=== PATIENT | female | born 1965 | race Caucasian/White ===

== ENCOUNTER 2023-03-13 08:53 | Emergency (ER) | payer MEDICARE, SELFPAY ==
[2023-03-13 09:00] VITALS: PULSE 89
[2023-03-13 09:08] VITALS: BP 150/86; PULSE 70; RESP 20; TEMP 36.4; BMI 30.5
--- NOTE | 2023-03-13 09:17 | XR_ITS ---
The [address] [address] Patient Name: LISSETT BAÑUELOS MRN: [id number] date: 1965 Sex: F Assigned Patient Location: ER Current Patient Location: ER Accession/Order Number: [id number] Exam Date: 03/13/2023 10:10 Report Date: 03/13/2023 10:35 At the request of: MAGI RENTERIA Procedure: XR elbow RT min 3V PROCEDURE: XR elbow RT min 3V HISTORY: fall with injury to right arm COMPARISON: None. FINDINGS: BONES:Posterior dislocation of the radius and ulna in relation to the humeral condyles. No visible fracture. SOFT TISSUES:No visible soft tissue swelling. EFFUSION:None visible. OTHER: Negative. IMPRESSION: 1. Complete posterior dislocation of the radius and ulna at the elbow joint. 2. No visible fracture or joint effusion. Electronically authenticated by: MATA FOSTER Date: 03/13/2023 10:35
--- NOTE | 2023-03-13 09:33 | ED_ITS ---
HPI - Extremity Injury (Upper) General Chief Complaint: Extremity Injury, Upper Stated Complaint: RIGHT ARM INJURY Time Seen by Provider: 03/13/23 09:32 Source: patient Mode of arrival: walk-in History of Present Illness HPI narrative: pt tripped over a dog and fell with her arm back and she hyper-extended her right elbow. She did not hit her head or having loss consciousness. She states unable to move her elbow. Has not taking anything at home for the pain. Denies any previous injury. Denies any paresthesias or weakness. Related Data Home Medications Medication Instructions Recorded Confirmed anastrozole 1 mg tablet 1 mg PO DAILY 03/13/23 03/13/23 atorvastatin 10 mg tablet 10 mg PO DAILY 03/13/23 03/13/23 fenofibrate micronized 134 mg 134 mg PO DAILY 03/13/23 03/13/23 capsule metoprolol succinate 25 mg 25 mg PO DAILY 03/13/23 03/13/23 tablet,extended release 24 hr ropinirole 0.5 mg tablet 0.5 mg PO DAILY 03/13/23 03/13/23 venlafaxine 75 mg capsule,extended 75 mg PO DAILY 03/13/23 03/13/23 release 24 hr Allergies Allergy/AdvReac Type Severity Reaction Status Date / Time acetaminophen [From Percocet] AdvReac Severe passing out Verified 03/13/23 09:08 oxycodone [From Percocet] AdvReac Severe passing out Verified 03/13/23 09:08 Review of Systems ROS Status of ROS 10 or more systems reviewed and unremarkable except as noted in history and below [facility] Social History Smoking status: Former smoker Exam Narrative Exam Narrative: Nurses notes and vital signs reviewed and patient is not hypoxic. General: Nontoxic, Well-appearing and in no apparent distress. Skin: Warm, dry, no pallor noted. No Rash Head: Normocephalic, atraumatic. Neck: Supple, non-tender. Eye: Pupils are equal, round and EOMI. No scleral icterus. Ears, Nose, Mouth, and Throat: TM clear, no posterior oropharynx erythema or nasal mucosal hypertrophy, uvula is mid-line Oral mucosa is moist Cardiovascular: Regular Rate and Rhythm without murmur, gallop or rub. Respiratory: No accessory muscle use or respiratory distress. Lungs are clear to auscultation, no wheezing, rales or rhonchi Chest Wall: no tenderness Back: No midline thoracic or lumbar vertebral tenderness. No CVA tenderness Musculoskeletal: deformity to the right elbow, mild edema and no ecchymosis. No tenderness to the wrist. Normal sensation to the thumb, middle finger and pinky. Radial pulse +2, capillary refill is brisk. Limited at the elbow due to pain. Small right knee abrasion. no calf or popliteal tenderness, no lower extremity edema/swelling GI: Abdomen is soft, non-distended. Normal bowel sounds. No masses appreciated. No tenderness to palpation. No rebound, guarding, or rigidity noted. Neurological: A&O x4. No cranial nerve dysfunction observed. No truncal ataxia. Moves all extremities. Sensation intact. Psychiatric: Cooperative and interactive. Normal mood and affect. Constitutional Vital Signs - 24 hr 03/13/23 09:08 03/13/23 09:00 03/13/23 11:20 Temperature 97.5 F L Pulse Rate [Monitor] 70 89 Respiratory Rate 20 Blood Pressure [Left Arm] 150/86 H Pulse Oximetry 97 Oxygen Delivery Method Oxygen Delivery Flow Rate 2 03/13/23 11:20 Temperature 98.1 F Pulse Rate [Monitor] 71 Respiratory Rate 20 Blood Pressure [Left Arm] 139/89 H Pulse Oximetry 97 Oxygen Delivery Method Nasal Cannula Oxygen Delivery Flow Rate 2 Course Vital Signs Vital signs: Vital Signs Pulse Rate 89 03/13/23 09:00 Temperature 98.1 F 03/13/23 11:20 Pulse Rate 71 03/13/23 11:20 Respiratory Rate 20 03/13/23 11:20 Blood Pressure 139/89 H 03/13/23 11:20 Pulse Oximetry 97 03/13/23 11:20 Oxygen Delivery Method Nasal Cannula 03/13/23 11:20 Oxygen Delivery Flow Rate 2 03/13/23 11:20 MDM - Extremity Injury (Upper) MDM Narrative Medical decision making narrative: Procedural sedation: The patient was identified prior to the procedure. Risks and benefits of procedure and anesthesia were reviewed and consent was obtained. Time out was called prior to the procedure. We ensured IV access was established. Intubation crash cart and airway equipment in the room. Respiratory is also at the bedside. The patient was placed on panel monitor with oxygen at 2LPM NC and continuous pulse oximetry and capnography. Patient was given Fentanyl 100 ?g for analgesia and Propofol 80 mg bolus for sedation. Procedure performed successfully and patient tolerated well. I was present for the analgesia, anesthesia and the procedure. Total procedure time: 25 min. Orthopedic reduction of right elbow Patient was placed in prone position. gentle Traction to the forearm was applied.Reduction was obtained. It was done to confirm. Radial pulse +2, capillary refill is brisk. Normal sensation distally. She was discussed with Dr. Mack. She was placed on a sugar tong splint with thumb base and the floor. She was placed in a sling. pt will RICE, take Tylenol and Motrin. At this time the patient is without objective evidence of an acute process requiring hospitalization or inpatient management. The patient has remained hemodynamically stable. No additional indication for emergent studies at this time. I answered all questions. Discussed discharge instructions including standard anticipatory guidance and what should prompt a return to the emergency department, including if they get worse are not getting better or develops any new or concerning symptoms. I've given them specific time frame in which to follow-up, and who to follow-up with. The patient demonstrates understanding. Patient is nontoxic and stable for discharge with outpatient follow-up. This note was created with the assistance of a speech recognition program. Although the intention is to generate documents that actually reflects the content of the visit, no guarantees can be provided that every mistake has been identified and corrected by editing. Discharge Plan Discharge Chief Complaint: Extremity Injury, Upper Clinical Impression: Dislocation closed, elbow Time of Disposition Decision: 12:39 Condition: Good Mode of Transportation: Private Vehicle Prescriptions / Home Meds: No Action atorvastatin 10 mg tablet 10 mg PO DAILY fenofibrate micronized 134 mg capsule 134 mg PO DAILY metoprolol succinate 25 mg tablet extended release 24 hr 25 mg PO DAILY ropinirole 0.5 mg tablet 0.5 mg PO DAILY venlafaxine 75 mg capsule,extended release 24hr 75 mg PO DAILY anastrozole 1 mg tablet 1 mg PO DAILY Instructions: Elbow Dislocation (ED) Stand Alone Forms: Portal Instructions Referrals: MEERA JEAN [Primary Care Provider] - 1 week SARAH FRIAS [Physician] - 1 week
--- NOTE | 2023-03-13 10:48 | XR_ITS ---
The [address] [address] Patient Name: LISSETT BAÑUELOS MRN: [id number] date: 1965 Sex: F Assigned Patient Location: ER Current Patient Location: ER Accession/Order Number: [id number] Exam Date: 03/13/2023 11:40 Report Date: 03/13/2023 12:07 At the request of: MAGI RENTERIA Procedure: XR elbow RT 2V PROCEDURE: XR elbow RT 2V HISTORY: post reduction COMPARISON: None. FINDINGS: BONES:Appropriate position of the radius and ulna relation to the humeral condyles. No visible fracture or articular surface irregularity. SOFT TISSUES:No visible soft tissue swelling. EFFUSION:Small joint effusion. OTHER: Negative. IMPRESSION: 1. Successful reduction of right elbow. No appreciable fracture. 2. Small joint effusion. Electronically authenticated by: MATA FOSTER Date: 03/13/2023 12:07
[2023-03-13] MEDS: FENTANYL CITRATE/PF 100 MCG/2 ML VIAL IV (11:17)
[2023-03-13] MEDS: 0.9 % SODIUM CHLORIDE 1,000 ML 999 ML IV (11:19)
[2023-03-13 11:20] VITALS: BP 139/89; PULSE 71; RESP 20; TEMP 36.7; O2SAT 97
[2023-03-13] MEDS: PROPOFOL 10 MG/1 ML VIAL 2.654 MG IV (11:27)
[2023-03-13 11:33] VITALS: BP 126/84; PULSE 65; RESP 20; O2SAT 98
[2023-03-13 11:43] VITALS: BP 133/94; PULSE 65; RESP 20; O2SAT 98
[2023-03-13 13:13] VITALS: BP 128/85; PULSE 69; RESP 20; O2SAT 98
== END 2023-03-13 13:07 | disposition home or self-care (01) ==
PROVIDERS: Emergency Provider Emergency Medicine; PCP Family Medicine
DX: S53.124A Posterior dislocation of right ulnohumeral joint, initial encounter (principal); Z87.891 Personal history of nicotine dependence; S80.211A Abrasion, right knee, initial encounter; W01.0XXA Fall on same level from slipping, tripping and stumbling without subsequent striking against object, initial encounter
CPT/HCPCS: 24600; 73070; 73080; 96374; 96375; 99285

== ENCOUNTER 2025-03-16 10:08 | Outpatient (OUT) | payer MEDICARE, SELFPAY ==
--- OUTSIDE RECORDS SUMMARY | 2025-03-16 10:13 | XMS_ITS | Encounter Summary ---
Author Organization [facility] Address [address] [place] [address] Care Team Providers Care Lath Hand Name Role Phone Jose Cervantes MD Unavailable + [phone] Nette Serrano MD Primary Care Provider [phone] Houston Carolina MD Unavailable [phone] Ramona Nunez PA-C Unavailable [phone] Shahrzad Person MD Unavailable [phone] Source Comments In the event this information is protected by the Federal Confidentiality of Alcohol and Drug AbusePatient Records regulations: The Federal rules restrict any use of the information to criminally investigate or prosecute any alcohol or drug abuse patient.[facility] Encounter Details Date Type Department Care Team (Late st Contact Info) Description 02/07/2025 Patient Msg Gynecology Oncology [address] [place], [place] [id number] Caty Adams APRN.PATTERN CHANGER [address] [place] [address] update Social History Tobacco Use Types Packs/Day Years Used Date Smoking Tobacco: Former Cigarettes 1 25 1 - 07/15/2021 Passive Smoke Exposure: Past Smokeless Tobacco: Never Alcohol Use Standard Drinks/Week Comments Not Currently 0 (1 standard drink = 0.6 oz pur e alcohol) PHQ-2 Answer Date Recorded PHQ-2 score 4 05/10/2024 Area Deprivation Index Answer Date Jad rded National Score (1-100), lower number is lower ri sk 65 03/26/2023 State Score (1-10), lower number is lower risk 4 03/26/2023 Data from: https://www.neighborhoodatlas.medicine.[facility]/. Last address used for calculation [address] 03/26/2023 Comments No Sex and Gender Information Value Date Recorded Sex Assigned at Not on file Legal Sex Female 2:52 PM EDT Gender Identity Not on file Sexual Orientation Not on file documented as of this encounter Plan of Treatment Upcoming Encounters Date Type Department Care Team (Latest Contact Info) Description 03/16/2025 1:45 PM EDT Appointment Radiology Pet CT [address] [place] [address] CT CAP W IV CONTRAST 03/16/2025 3:30 PM EDT Visit (SP) Office Gynecology Oncology [address] [place] [address] [place] [address] Caty Adams APRN.PATTERN CHANGER [address] [place], [place] [id number] Follo up per encounter documented as of this encounter Visit Diagnoses Not on filedocumented in this encounter Care Teams Lath Hand Relationship Specialty Start Date End Date Nette Serrano MD [address] [facility] [place] [address] PCP - General Family Medicine 07/27/21 Jose Cervantes MD [address] [place] [address] Referring Thoracic Surgery 07/20/21 Houston Carolina MD [address] [place] [address] [place] [address] Physician Hematology/Oncology 08/27/21 Ramona Nunez PA-C [address] [place] [address] [place] [address] Physician Aerial Planting And Cultivation Manager Hematology/Oncology 08/27/21 Shahrzad Person MD [address] [place] [address] Referring Gynecology 07/27/23 documented as of this encounter
--- OUTSIDE RECORDS SUMMARY | 2025-03-16 10:13 | XMS_ITS | Encounter Summary ---
Author Organization [facility] Address [address] [place] [address] Care Team Providers Care Rn X Ray Name Role Phone Jose Cervantes MD Unavailable + [phone] Nette Serrano MD Primary Care Provider [phone] Cindy Timmons RN Unavailable [phone] Houston Carolina MD Unavailable [phone] Ramona Nunez PA-C Unavailable [phone] Shahrzad Person MD Unavailable [phone] Source Comments In the event this information is protected by the Federal Confidentiality of Alcohol and Drug AbusePatient Records regulations: The Federal rules restrict any use of the information to criminally investigate or prosecute any alcohol or drug abuse patient.[facility] Encounter Details Date Type Department Care Team (Late st Contact Info) Description 10/15/2023 Patient Msg Gynecology [address] [place] [address] Stephanie Castañeda APRN.[employer] GLAZER [address] [place] [address] Labs Social History Tobacco Use Types Packs/Day Years Used Date Smoking Tobacco: Former Cigarettes 10 30 1 - 07/15/2021 Passive Smoke Exposure: Past Smokeless Tobacco: Never Alcohol Use Standard Drinks/Week Comments Not Currently 0 (1 standard drink = 0.6 oz pur e alcohol) PHQ-2 Answer Date Recorded PHQ-2 score 2 08/30/2022 Area Deprivation Index Answer Date Jad rded National Score (1-100), lower number is lower ri sk 65 03/26/2023 State Score (1-10), lower number is lower risk 4 03/26/2023 Data from: https://www.neighborhoodatlas.medicine.[facility].edu/. Last address used for calculation [address] 03/26/2023 Comments No Sex and Gender Information Value Date Recorded Sex Assigned at Not on file Legal Sex Female 2:52 PM EDT Gender Identity Not on file Sexual Orientation Not on file documented as of this encounter Plan of Treatment Upcoming Encounters Date Type Department Care Team (Latest Contact Info) Description 03/16/2025 1:45 PM EDT Appointment Radiology Pet CT [address] [facility] [place] [address] CT CAP W IV CONTRAST 03/16/2025 3:30 PM EDT Visit (SP) Office Gynecology Oncology [address] [place] [address] [place] [address] Caty Adams APRN.[employer] GLAZER [address] [place], [place] [id number] Follo up per encounter documented as of this encounter Visit Diagnoses Not on filedocumented in this encounter Care Teams Rn X Ray Relationship Specialty Start Date End Date Nette Serrano MD [address] [place] [address] PCP - General Family Medicine 07/27/21 Jose Cervantes MD [address] [place] [address] Referring Thoracic Surgery 07/20/21 Cindy Timmons RN [address] [facility] [address] Specialty Machine Assembler For Puller Over Hematology/Oncology 08/27/21 01/26/24 Houston Carolina MD [address] [place] [address] Physician Hematology/Oncology 08/27/21 Ramona Nunez PA-C [address] [facility] [place] [address] Physician Information Security Systems Instructor Hematology/Oncology 08/27/21 Shahrzad Person MD [address] [place] [address] Referring Gynecology 07/27/23 documented as of this encounter
--- OUTSIDE RECORDS SUMMARY | 2025-03-16 10:13 | XMS_ITS | Encounter Summary ---
Author Organization [facility] Address [address] [place] [address] Care Team Providers Care Cdl Driver Name Role Phone Jose Cervantes MD Unavailable + [phone] Nette Serrano MD Primary Care Provider [phone] Houston Carolina MD Unavailable [phone] Ramona Nunez PA-C Unavailable [phone] Shahrzad Person MD Unavailable [phone] Source Comments In the event this information is protected by the Federal Confidentiality of Alcohol and Drug AbusePatient Records regulations: The Federal rules restrict any use of the information to criminally investigate or prosecute any alcohol or drug abuse patient.[facility] Reason for Visit * Reason Comments Refill Request Encounter Details Date Type Department Care Team (Late st Contact Info) Description 06/03/2024 Refill Radiation Oncology [address] [place] [address] [place] [address] Caty Adams APRN.COLLEGE INTERN [address] [place] [address] Refill Request Social History Tobacco Use Types Packs/Day Years [...] is lower risk 4 03/26/2023 Data from: https://www.neighborhoodatlas.medicine.[facility]/. Last address used for calculation [address] [...] PM EDT Appointment Radiology Pet CT [address] [facility] [address] CT CAP W IV CONTRAST 03/16/2025 3:30 PM EDT Visit (SP) Office Gynecology Oncology [address] [facility] [address] Caty Adams APRN.COLLEGE INTERN [address] [place], [place] [phone] Follo up per encounter documented as of this encounter Visit Diagnoses Not on filedocumented in this encounter Care Teams Cdl Driver Relationship Specialty Start Date End Date Nette Serrano MD [address] [place] [address] PCP - General Family Medicine 07/27/21 Jose Cervantes MD [address] [place] [address] Referring Thoracic Surgery 07/20/21 Houston Carolina MD [address] [place] [address] Physician Hematology/Oncology 08/27/21 Ramona Nunez PA-C [address] [place] [address] Physician Refrigerating Technician Hematology/Oncology 08/27/21 Shahrzad Person MD [address] [place] [address] Referring Gynecology 07/27/23 documented as of this encounter
--- OUTSIDE RECORDS SUMMARY | 2025-03-16 10:13 | XMS_ITS | Encounter Summary ---
Author Organization [employer] Address [id number] [address] [place] [address] Care Team Providers Care Lecturer Of Portuguese Name Role Phone Nette Serrano MD Primary Care Provider [phone] Encounter Details Date Type Department Care Team (Late st Contact Info) Description 07/19/2021 [facility] [address] [address] Brooke Aviles LPN Social History Tobacco Use Types Packs/Day Years Used Date Smoking Tobacco: Some Days Cigarettes Smokeless Tobacco: Never Alcohol Use Standard Drinks/Week Comments Not Currently 0 (1 standard drink = 0.6 oz pur e alcohol) Childcare Answer Date Recorded Childcare Unknown 03/17/2019 Employment Answer Date Recorded Employment Unknown 03/17/2019 Purpose - Life Answer Date Recorded Purpose and direction in life Unknown Comments No Sex and Gender Information Value Date Recorded Sex Assigned at Not on file Legal Sex Female 12:06 PM EDT Gender Identity Not on file Sexual Orientation Not on file COVID-19 Exposure Response Date Recorded In the last month, have you been in contact with someone who was confirmed or suspected to have Coronavirus / COVID-19? No / Unsure 07/19/2021 8:35 AM EDT documented as of this encounter Miscellaneous Notes * Telephone Encounter - Brooke Aviles LPN - 07/19/2021 10:19 AM EDT AUTO ADJUDICATION SPECIALIST Suzanne Hdez from Cardio/surgery - pt states she wants to go [facility] and very demanding to go there (was given her path results today)- there is an office in [place] close to her house, and she has been there before. AUTO ADJUDICATION SPECIALIST is wondering what we would like to do, and if we have a doctorwe recommend there, and if that's okay to send her there? [phone] - turbinated bone grinder [facility] Office [phone] * Telephone Encounter - Pawan Osborne MD - 07/19/2021 10:19 AM EDT . Houston Carolina MD is [facility] office Can see him or one of his partners Does she want to see us in RV? rjw * Telephone Encounter - Brooke Aviles LPN - 07/19/2021 10:19 AM EDT Cardio/surgery will place referral, will call if they have any issues. Pt still wants to keep her f/u with you on 07/26 at noon. documented in this encounter Plan of Treatment Not on file documented as of this encounter Goals Goal Patient Goal Type Associated Problems Recent Progress Patient-Stated? Author home General Yes Maria Isabel Valadez RN Note: Evaluation of progress towards goal: Patient plans to discharge home with self care and with assistance from family. documented as of this encounter Visit Diagnoses Not on filedocumented in this encounter Care Teams Lecturer Of Portuguese Relationship Specialty Start Date End Date Nette Serrano MD [address] [place] [address] PCP - General Family Medicine 06/19/21 documented as of this encounter
--- OUTSIDE RECORDS SUMMARY | 2025-03-16 10:13 | XMS_ITS | Encounter Summary ---
Author Organization [facility] Address [address] [place] [address] Care Team Providers Care Head Sawyer Name Role Phone Jose Cervantes MD Unavailable + [phone] Nette Serrano MD Primary Care Provider [phone] Cindy Timmons RN Unavailable [phone] Houston Carolina MD Unavailable [phone] Ramona Nunez PA-C Unavailable [phone] Shahrzad Person MD Unavailable [phone] Source Comments In the event this information is protected by the Federal Confidentiality of Alcohol and Drug AbusePatient Records regulations: The Federal rules restrict any use of the information to criminally investigate or prosecute any alcohol or drug abuse patient.[facility] Encounter Details Date Type Department Care Team (Latest Contact Info) Description 07/04/2022 H&P External-NonCCF Provider, LORENA Curtis Do not enter address information under generic External Provider. Social History Tobacco Use Types Packs/Day Years Used Date Smoking Tobacco: Former Cigarettes 1 25 1 - 07/15/2021 Smokeless Tobacco: Never Alcohol Use Standard Drinks/Week Comments Not Currently 0 (1 standard drink = 0.6 oz pur e alcohol) PHQ-2 Answer Date Recorded PHQ-2 score 0 05/31/2022 Area Deprivation Index Answer Date Jad rded National Score (1-100), lower number is lower ri sk 62 03/01/2022 State Score (1-10), lower number is lower risk N ot on file 03/01/2022 Data from: https://www.neighborhoodatlas.medicine.[facility].edu/. Last address used for calculation [address] [place] 03/01/2022 Comments No Sex and Gender Information Value Date Recorded Sex Assigned at Not on file Legal Sex Female 2:52 PM EDT Gender Identity Not on file Sexual Orientation Not on file documented as of this encounter Plan of Treatment Upcoming Encounters Date Type Department Care Team (Latest Contact Info) Description 03/16/2025 1:45 PM EDT Appointment Radiology Pet CT [address] [facility] [place] [address] CT CAP W IV CONTRAST 03/16/2025 3:30 PM EDT Visit (SP) Office Gynecology Oncology [address] [place] [address] [place] [address] Caty Adams APRN.CASHIER AND SALESPERSON [address] [place], [place] [id number] Follo up per encounter documented as of this encounter Visit Diagnoses Not on filedocumented in this encounter Care Teams Head Sawyer Relationship Specialty Start Date End Date Nette Serrano MD [address] [place] [address] PCP - General Family Medicine 07/27/21 Jose Cervantes MD [address] [facility] [place] [address] Referring Thoracic Surgery 07/20/21 Cindy Timmons, RN [address] [facility] [place] [address] Specialty Gis Geographer Hematology/Oncology 08/27/21 01/26/24 Houston Carolina MD [address] [place] [address] Physician Hematology/Oncology 08/27/21 Ramona Nunez PAMeñoC [address] [place] [address] Physician Conservation Agent Hematology/Oncology 08/27/21 Shahrzad Person MD [address] [place] [address] Referring Gynecology 07/27/23 documented as of this encounter
--- OUTSIDE RECORDS SUMMARY | 2025-03-16 10:13 | XMS_ITS | Clinical Summary ---
Author Organization [facility] Address [address] [place] [address] Care Team Providers Care Banana Handler Name Role Phone Jose Cervantes MD Unavailable + [phone] Nette Serrano MD Primary Care Provider [phone] Houston Carolina MD Unavailable [phone] Ramona Nunez PA-C Unavailable [phone] Shahrzad Person MD Unavailable [phone] Allergies Active Allergy Reactions Criticality Noted Date Comments Alcohol Hives 09/07/2021 Oxycodone-Acetaminophen Other: See Comments High PASSED OUT Medications atorvastatin (LIPITOR) 10 mg tablet Take 10 mg by mouth once daily. Active fenofibrate (LOFIBRA) 134 mg capsule Take 134 mg by mouth once daily. Active metoprolol succinate ER (TOPROL XL) 25 mg 24 hr tablet Take 12.5 mg by mouth once daily. Active rOPINIRole (REQUIP) 0.5 mg tablet Take 0.5 mg by mouth once daily. Active venlafaxine ER (EFFEXOR XR) 75 mg 24 hr capsule Take 75 mg by mouth once daily. 05/12/2019 Active multivit-min/ludy jassi fumarate (MULTI VITAMIN ORAL) Take 1 tablet by mouth once daily. Active calcium-carbonat e-vitamin D3 500 mg(1,250mg) -200 unit per tablet Take 1 tablet by mouth once daily. Active prochlorperazine (COMPAZINE) 10 mg tablet Take 1 tablet by mouth every 6 hours as needed. 100 tablet 2 09/07/2021 1:25 PM EST 08/27/2021 Active acetaminophen (TYLENOL) 500 mg tablet Take 500 mg by mouth every 8 hours as needed. Active ibuprofen (MOTRIN) 200 mg tablet Take 400 mg by mouth every 6 hours as needed. Active tamoxifen (NOLVADEX) 20 mg tablet Take 1 tablet (20 mg) by mouth every afternoon. 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 Encounters Date Type Department Care Team Description 02/07/2025 Patient Msg Gynecology Oncology [address] [place] [address] Caty Adams APRN.TOMBSTONE SETTER update 02/07/2025 Telephone Cancer Appts [address] [place] [address] Shahrzad Person MD 02/07/2025 Refill Gynecology [address] [place] [address] Basilia Willard RN Refill Request 12/22/2024 7:37 AM EDT - 12/22/2024 11:59 PM EDT Hospital Encounter Radiology Pet CT [address] [place] [address] Granulosa cell tumor [D39.10] Discharge Disposition: Home 12/22/2024 Results Follow-Up Gynecology Oncology [address] [place] [address] Caty Adams APRN.TOMBSTONE SETTER 12/21/2024 Telephone Hematology/Oncology [address] [place] [address] [place] [address] Bren Woodall RN Orders 12/18/2024 Travel from Last 3 Months Immunizations Immunization Administration Dates Next Due diphtheria tetanus pertussis (DTP) vaccine 05/06 Family History Medical History Relation Comments bladder cancer Brother 1 Prostate Cancer Brother 2 Lung Cancer Mother Breast Cancer Paternal Aunt 1 Breast Cancer Paternal Aunt 2 Breast Cancer Paternal Aunt 3 Pancreatic Cancer Paternal Grandmother Uterine Cancer Sister 1 Uterine Cancer Sister 2 Relation Status Comments Brother 1 Alive Brother 2 Alive Mother Paternal Aunt 1 Alive Paternal Aunt 2 Alive Paternal Aunt 3 Paternal Grandmother Sister 1 Alive Sister 2 Alive Social History Tobacco Use Types Packs/Day Years Used Date Smoking Tobacco: Former Cigarettes 1 25 1 - 07/15/2021 Passive Smoke Exposure: Past Smokeless Tobacco: Never Tobacco Cessation:Counseling Given: Not Answered Alcohol Use Standard Drinks/Week Comments Not Currently 0 (1 standard drink = 0.6 oz pur e alcohol) PHQ-2 Answer Date Recorded PHQ-2 score 4 05/10/2024 Area Deprivation Index Answer Date Jad rded National Score (1-100), lower number is lower ri sk 65 03/26/2023 State Score (1-10), lower number is lower risk 4 03/26/2023 Data from: https://www.neighborhoodatlas.medicine.[facility].edu/. Last address used for calculation [address] 03/26/2023 Comments No Sex and Gender Information Value Date Recorded Sex Assigned at Not on file Legal Sex Female 2:52 PM EDT Gender Identity Not on file Sexual Orientation Not on file Last Filed Vital Signs Vital Sign Reading Time Taken Comments Blood Pressure 150/87 09/01/2024 8:36 AM EST Pulse 94 09/01/2024 8:36 AM EST Temperature 36.5 C (97.7 F) 09/01/2024 8:36 AM EST Respiratory Rate 16 09/01/2024 8:36 AM EST Oxygen Saturation 95% 09/01/2024 8:36 AM EST Inhaled Oxygen Concentration - - Weight 96.5 kg (212 lb 11.9 oz) 09/01/2024 8:36 AM EST Height 167 cm (5' 5.75 ) 08/19/2023 2:52 PM EST Body Mass Index 34.6 08/19/2023 2:52 PM EST Plan of Treatment Upcoming Encounters Date Type Department Care Team (Latest Contact Info) Description 03/16/2025 1:45 PM EDT Appointment Radiology Pet CT [address] [place] [address] CT CAP W IV CONTRAST 03/16/2025 3:30 PM EDT Visit (SP) Office Gynecology Oncology [address] [place] [address] Caty Adams APRN.TOMBSTONE SETTER [address] [place] [address] Follo up per encounter Health Maintenance Due Date Last Done Comments Anxiety Screening 1985 Depression Screening 1985 HIV Screening 1985 Hepatitis C Screening 1985 Hepatitis B Vaccine (1 of 3 - 19+ 3-dose series) 1986 Cervical Cancer Screening [address] Colonography 2012 Cologuard (FIT-DNA) 2012 Colonoscopy 2012 Lipid Screening 2012 Sigmoidoscopy 2012 Pneumococcal Vaccine: 50+ (1 of 1 - PCV) 2017 Shingrix Vaccine (1 of 2) 2017 Colorectal Cancer Screening 06/23/2022 Fecal Occult Blood 06/23/2022 06/23/2021 Covid-19 Vaccine (1 - 2023-2 5 season) 2024 Medicare Advantage Annual We llness Visit 10/06/2024 Influenza Vaccine (Season Ended) 2025 Diabetes Screening 09/01/2027 09/01/2024, 0 03/19/2023, 08/15/2022, Additional history exists DTaP,Tdap,Td Vaccine (2 - Tdap) 05/06/2031 Procedures Procedure Name Priority Date/Time Associated Diagnosis Comments CT CHEST W IVCON Routine 12/22/2024 9:15 AM EDT Granulosa cell tumor Abnormal CT of spine Abnormal CT scan, pelvis CT ABD/PEL W IVCON Routine 12/22/2024 9: 15 AM EDT Granulosa cell tumor Abnormal CT of spine Abnormal CT scan, pelvis CREATININE BLD Routine 12/22/2024 7:38 AM EDT Malignant neoplasm of ovary, unspecified laterality (HCC) COMPREHENSIVE METABOLIC PANEL Routine 09/01/2024 9:28 AM EST Granulosa cell tumor from Last 3 Months or Most Recently Relevant to Health Maintenance Results * CT ABD/PEL W IVCON (12/22/2024 9:15 AM EDT) Anatomical Region Laterality Modality Abdomen Nuclear Medicine , Nuclear Medicine 12/22/2024 9:15 AM EDT Impressions 12/22/2024 10:30 AM EDT IMPRESSION: 1. Since 08/23/2024, similar appearance of left adnexal/perisigmoid mass. 2. Unchanged sclerotic osseous metastases involving the bony pelvis with healing pathologic fractures of the left inferior and superior pubic rami. 3. No progressive metastatic disease within the abdomen/pelvis. 4. Please refer to concurrently acquired and separately reported chest CT for findings related to the thorax. Transcribe Date/Time: Dec 22 2024 9:37A Dictated by: WILFRID BRADEN MD This examination was interpreted and the report reviewed and electronically signed by: WILFRID BRADEN MD on Dec 22 2024 10:27AM EST Thank you for allowing us to participate in the care of your patient. Should there be any questions regarding this interpretation, please call [phone]. If you are unable to reach us at the number above, please feel free to contact [facility] at [phone]. Narrative 12/22/2024 10:30 AM EDT * * *Final Report* * * DATE OF EXAM: Dec 22 2024 9:15AM [facility] 0530 - CT ABD/PEL W IVCON / PROCEDURE REASON: multiple diagnoses * * * * Physician Interpretation * * * * RESULT: EXAMINATION: CT ABDOMEN AND PELVIS WITH IV CONTRAST CLINICAL HISTORY: Granulosa cell tumor. Examination for follow-up. TECHNIQUE: CT of the abdomen and pelvis was performed using standard technique, scanning from just above the dome of the diaphragm to the symphysis pubis. MQ: CTAP_3 Contrast: IV: 100 ml of Omnipaque 350 Oral: 500 ml of Omni 240 10-25ml diluted with water CT Radiation dose: Integrated Dose-length product (DLP) for this visit = 1544 mGy*cm. CT Dose Reduction Employed: mAs-kVp adjusted based on patient size-age COMPARISON: CT abdomen/pelvis 08/23/2024, 04/19/2024, 01/12/2024 and 10/15/2023 RESULT: Liver: Normal liver morphology. No suspicious hepatic mass. Biliary: No bile duct dilation. Gallbladder is unremarkable. Spleen: No mass. No splenomegaly. Pancreas: No mass or duct dilation. Adrenals: No mass. Kidneys: The kidneys enhance symmetrically. Subcentimeter hypodensities within the renal cortices are too small to categorize, but likely cysts. There are nonobstructive left renal stones, measuring up to 0.8 cm. No ureteral stone or hydronephrosis. GI tract: There is a moderate-sized hiatal hernia. The bowel is normal in caliber and without evidence of wall thickening or obstruction. There are sigmoid colonic diverticula, without associated inflammation. Please also see pelvis section. Normal appendix. Lymph nodes: No abdominal or pelvic lymphadenopathy. Mesentery/Peritoneum: No ascites or mass. Retroperitoneum: No mass. Vasculature: - Abdominal aorta and iliac arteries: Atherosclerotic calcifications without aneurysm. - Celiac and SMA: Patent without stenosis. - Portal venous system (SMV, splenic vein, portal vein and branches): Patent. - Hepatic veins: Patent. Pelvis: The rectum and urinary bladder are unremarkable. A heterogeneously enhancing left adnexal mass with broad-based contact with the sigmoid colon measures 4.2 x 5.6 cm on series 3, image 110 (previously 4.2 x 5.4 cm). No new pelvic mass or fluid collection. Bones/Soft Tissues: Ill-defined lytic/sclerotic osseous metastases involving the left inferior and superior pubic rami with healing associated pathologic fractures are similar in appearance. Additional sclerotic osseous lesions involving both iliac wings (series 3, image 104 and 96) are also unchanged. No new destructive osseous abnormality. Lower thorax: A chest CT performed will be reported separately. Localizer images: No additional findings. Procedure Note Provider, [facility] [place] - 12/22/2024 * * *Final Report* * * DATE OF EXAM: Dec 22 2024 9:15AM [facility] 0530 - CT ABD/PEL W IVCON / PROCEDURE REASON: multiple diagnoses * * * * Physician Interpretation * * * * RESULT: EXAMINATION: CT ABDOMEN AND PELVIS WITH IV CONTRAST CLINICAL HISTORY: Granulosa cell tumor. Examination for follow-up. TECHNIQUE: CT of the abdomen and pelvis was performed using standard technique, scanning from just above the dome of the diaphragm to the symphysis pubis. MQ: CTAP_3 Contrast: IV: 100 ml of Omnipaque 350 Oral: 500 ml of Omni 240 10-25ml diluted with water CT Radiation dose: Integrated Dose-length product (DLP) for this visit = 1544 mGy*cm. CT Dose Reduction Employed: mAs-kVp adjusted based on patient size-age COMPARISON: CT abdomen/pelvis 08/23/2024, 04/19/2024, 01/12/2024 and 10/15/2023 RESULT: Liver: Normal liver morphology. No suspicious hepatic mass. Biliary: No bile duct dilation. Gallbladder is unremarkable. Spleen: No mass. No splenomegaly. Pancreas: No mass or duct dilation. Adrenals: No mass. Kidneys: The kidneys enhance symmetrically. Subcentimeter hypodensities within the renal cortices are too small to categorize, but likely cysts. There are nonobstructive left renal stones, measuring up to 0.8 cm. No ureteral stone or hydronephrosis. GI tract: There is a moderate-sized hiatal hernia. The bowel is normal in caliber and without evidence of wall thickening or obstruction. There are sigmoid colonic diverticula, without associated inflammation. Please also see pelvis section. Normal appendix. Lymph nodes: No abdominal or pelvic lymphadenopathy. Mesentery/Peritoneum: No ascites or mass. Retroperitoneum: No mass. Vasculature: - Abdominal aorta and iliac arteries: Atherosclerotic calcifications without aneurysm. - Celiac and SMA: Patent without stenosis. - Portal venous system (SMV, splenic vein, portal vein and branches): Patent. - Hepatic veins: Patent. Pelvis: The rectum and urinary bladder are unremarkable. A heterogeneously enhancing left adnexal mass with broad-based contact with the sigmoid colon measures 4.2 x 5.6 cm on series 3, image 110 (previously 4.2 x 5.4 cm). No new pelvic mass or fluid collection. Bones/Soft Tissues: Ill-defined lytic/sclerotic osseous metastases involving the left inferior and superior pubic rami with healing associated pathologic fractures are similar in appearance. Additional sclerotic osseous lesions involving both iliac wings (series 3, image 104 and 96) are also unchanged. No new destructive osseous abnormality. Lower thorax: A chest CT performed will be reported separately. Localizer images: No additional findings. IMPRESSION IMPRESSION: 1. Since 08/23/2024, similar appearance of left adnexal/perisigmoidmass. 2. Unchanged sclerotic osseous metastases involving the bony pelvis with healing pathologic fractures of the left inferior and superior pubicrami. 3. No progressive metastatic disease within the abdomen/pelvis. 4. Please refer to concurrently acquired and separately reported chest CT for findings related to the thorax. Transcribe Date/Time: Dec 22 2024 9:37A Dictated by: WILFRID BRADEN MD This examination was interpreted and the report reviewed and electronically signed by: WILFRID BRADEN MD on Dec 22 2024 10:27AM EST Thank you for allowing us to participate in the care of your patient. Should there be any questions regarding this interpretation, please call [phone]. If you are unable to reach us at the number above, please feel free to contact [facility] at [phone]. us Caty Adams BLOW MOLD TECHNICIAN.TOMBSTONE SETTER CT-PAMA Final R esult * CT CHEST W IVCON (12/22/2024 9:15 AM EDT) Anatomical Region Laterality Modality Chest Nuclear Medicine , Nuclear Medicine 12/22/2024 9:15 AM EDT Impressions 12/22/2024 9:31 AM EDT IMPRESSION: 1. Evolving postradiation pneumonitis in left upper lobe is slightly increased consolidative component with no findings of recurrent lung mass. 2. Other scattered lung nodules are stable compared to recent prior examinations including a cavitating nodule in left apex, this nodule was solid and slightly smaller in size on the remote study from October 2023. These nodules remain indeterminate but likely reflect stable metastatic disease. Recommend continued attention on follow-up. Transcribe Date/Time: Dec 22 2024 9:19A Dictated by: ABBY JAIN MD This examination was interpreted and the report reviewed and electronically signed by: ABBY JAIN MD on Dec 22 2024 9:29AM EST Thank you for allowing us to participate in the care of your patient. Should there be any questions regarding this interpretation, please call [phone]. If you are unable to reach us at the number above, please feel free to contact [facility] at [phone]. Narrative 12/22/2024 9:31 AM EDT * * *Final Report* * * DATE OF EXAM: Dec 22 2024 9:15AM [facility] 0539 - CT CHEST W IVCON / PROCEDURE REASON: multiple diagnoses * * * * Physician Interpretation * * * * RESULT: EXAMINATION: CHEST CT WITH CONTRAST CLINICAL HISTORY: Granulosa cell tumor Technique: Spiral CT acquisition of the chest from the thoracic inlet to the upper abdomen following IV contrast. MQ: CTCW_6 Contrast: 100 mL Omnipaque [address] Radiation dose: Integrated Dose-length product (DLP) for this visit = 1544 mGy*cm CT Dose Reduction Employed: mAs-kVp adjusted based on patient size-age Comparison: Multiple prior studies dating back to 10/15/2023 RESULT: Limitations: None. Lines, tubes, and devices: None. Lung parenchyma and airways: Evolving postradiation pneumonitis in left upper lobe with slightly increased consolidative component for example on image 72 series 4, the underlying treated left upper lobe mass is not separately identified. Surgical staple line noted in left lung. A right upper lobe 0.6 cm nodule on image 77, a 0.5 cm nodule in left lung base on image 150 and a 0.8 cm nodule in left lung base on image 146 are stable. A cavitary nodule in left apex medially measuring 0.8 cm on image 33 is stable since recent prior examination, it was solid and smaller in size on the study from October 2023. No new lung nodules have developed. Mild upper lung predominant centrilobular emphysema noted. The central airways are patent. Pleural space: No pleural effusion. No pleural thickening. Lower neck, lymph nodes, and mediastinum: The imaged thyroid gland is normal. No lymphadenopathy in the supraclavicular, axillary, mediastinal, or hilar regions. Moderate-sized hiatus hernia. Heart, pericardium, and thoracic vessels: The thoracic aorta and main pulmonary artery are normal in caliber. The cardiac chambers are normal in size. No coronary artery atherosclerotic calcifications are noted, although the study is not optimized for coronary assessment. No pericardial effusion or thickening. Bones and soft tissues: No destructive bone lesion. Chest wall is unremarkable. Upper abdomen: Dictated separately. Localizer images: No additional findings. Procedure Note Provider, [facility] [place] - 12/22/2024 * * *Final Report* * * DATE OF EXAM: Dec 22 2024 9:15AM [facility] 0539 - CT CHEST W IVCON / PROCEDURE REASON: multiple diagnoses * * * * Physician Interpretation * * * * RESULT: EXAMINATION: CHEST CT WITH CONTRAST CLINICAL HISTORY: Granulosa cell tumor Technique: Spiral CT acquisition of the chest from the thoracic inlet to the upper abdomen following IV contrast. MQ: CTCW_6 Contrast: 100 mL Omnipaque [address] Radiation dose: Integrated Dose-length product (DLP) for this visit = 1544 mGy*cm CT Dose Reduction Employed: mAs-kVp adjusted based on patient size-age Comparison: Multiple prior studies dating back to 10/15/2023 RESULT: Limitations: None. Lines, tubes, and devices: None. Lung parenchyma and airways: Evolving postradiation pneumonitis in left upper lobe with slightly increased consolidative component for example on image 72 series 4, the underlying treated left upper lobe mass is not separately identified. Surgical staple line noted in left lung. A right upper lobe 0.6 cm nodule on image 77, a 0.5 cm nodule in left lung base on image 150 and a 0.8 cm nodule in left lung base on image 146 are stable. A cavitary nodule in left apex medially measuring 0.8 cm on image 33 is stable since recent prior examination, it was solid and smaller in size on the study from October 2023. No new lung nodules have developed. Mild upper lung predominant centrilobular emphysema noted. The central airways are patent. Pleural space: No pleural effusion. No pleural thickening. Lower neck, lymph nodes, and mediastinum: The imaged thyroid gland is normal. No lymphadenopathy in the supraclavicular, axillary, mediastinal, or hilar regions. Moderate-sized hiatus hernia. Heart, pericardium, and thoracic vessels: The thoracic aorta and main pulmonary artery are normal in caliber. The cardiac chambers are normal in size. No coronary artery atherosclerotic calcifications are noted, although the study is not optimized for coronary assessment. No pericardial effusion or thickening. Bones and soft tissues: No destructive bone lesion. Chest wall is unremarkable. Upper abdomen: Dictated separately. Localizer images: No additional findings. IMPRESSION IMPRESSION: 1. Evolving postradiation pneumonitis in left upper lobe is slightly increased consolidative component with no findings of recurrent lungmass. 2. Other scattered lung nodules are stable compared to recent prior examinations including a cavitating nodule in left apex, this nodule was solid and slightly smaller in size on the remote study from October 2023. These nodules remain indeterminate but likely reflect stable metastatic disease. Recommend continued attention on follow-up. Transcribe Date/Time: Dec 22 2024 9:19A Dictated by: ABBY JAIN MD This examination was interpreted and the report reviewed and electronically signed by: ABBY JAIN MD on Dec 22 2024 9:29AM EST Thank you for allowing us to participate in the care of your patient. Should there be any questions regarding this interpretation, please call [phone]. If you are unable to reach us at the number above, please feel free [facility] [phone]. us Caty Adams BLOW MOLD TECHNICIAN.TOMBSTONE SETTER CT-PAMA Final R esult * CREATININE BLD (12/22/2024 7:38 AM EDT) Creatinine 0.77 0.58 - 0.96 mg/dL 12/22/2024 8:24 AM EDT [facility] Estimated Glomerular Filtration Rate 90 >=60 mL/min/1.7 3m 12/22/2024 8:24 AM EDT [facility] Comment:Estimated Glomerular Filtration Rate (eGFR) is calculated using the 2020 CKD-EPI creatinine equation. This equation utilizes serum creatinine, sex, and age as parameters. The creatinine assay has traceable calibration to isotope dilution- mass spectrometry. Refer to KDIGO guidelines for clinical interpretation. In patients with unstable renal function, e.g. those with acute kidney injury, the eGFR may not accurately reflect actual GFR. Blood BLOOD SPECIMEN / Unknown Venipuncture / Unknown 12/22/2024 7:38 AM EDT 12/22/2024 7:53 AM EDT us Kaylin Sepulveda BLOW MOLD TECHNICIAN.TOMBSTONE SETTER LABORATORY Final Resul t [facility] [address] [place] [address] * (ABNORMAL) COMPREHENSIVE METABOLIC PANEL (09/01/2024 9:28 AM EST) Protein, Total 6.9 6.3 - 8.0 g/dL 09/01/2024 10:18 AM [facility] Albumin 4.3 3.9 - 4.9 g/dL 09/01/2024 10:18 AM [facility] Calcium, Total 9.1 8.5 - 10.2 mg/dL 09/01/2024 10:18 AM [facility] Bilirubin, Total 0.2 0.2 - 1.3 mg/dL 09/01/2024 10:18 AM [facility] Alkaline Phosphatase 63 34 - 123 U/L 09/01/2024 10:18 AM [facility] AST 12(L) 13 - 35 U/L 09/01/2024 10:18 AM [facility] ALT 11 7 - 38 U/L 09/01/2024 10:18 AM [facility] Glucose 107(H) 74 - 99 mg/dL 09/01/2024 10:18 AM [facility] Comment: The [place] [employer] (ADA) provides guidance for cutoff values for fasting glucose and random glucose. The ADA defines fasting as no caloric intake for at least 8 hours. Fasting plasma glucose results between 100 to 125 mg/dL indicate increased risk for diabetes (prediabetes). Fasting plasma glucose results greater than or equal to 126 mg/dL meet the criteria for diagnosis of diabetes. In the absence of unequivocal hyperglycemia, results should be confirmed by repeat testing. In a patient with classic symptoms of hyperglycemia or hyperglycemic crisis, random plasma glucose results greater than or equal to 200 mg/dL meet the criteria for diagnosis of diabetes. Reference: Standards of Medical Care in Diabetes 2016, [place] [employer]. Diabetes Care. 2016.39(Suppl 1). BUN 13 7 - 21 mg/dL 09/01/2024 10:18 AM [facility] Creatinine 0.94 0.58 - 0.96 mg/dL 09/01/2024 10:18 AM [facility] Sodium 140 136 - 144 mmol/L 09/01/2024 10:18 AM [facility] Potassium 4.5 3.7 - 5.1 mmol/L 09/01/2024 10:18 AM EST [facility] Chloride 105 98 - 107 mmol/L 09/01/2024 10:18 AM EST [facility] CO2 26 22 - 30 mmol/L 09/01/2024 10:18 AM EST [facility] Anion Gap 9 8 - 15 mmol/L 09/01/2024 10:18 AM EST [facility] Estimated Glomerular Filtration Rate 71 >=60 mL/min/1. 73m 09/01/2024 10:18 AM EST [facility] Comment:Estimated Glomerular Filtration Rate (eGFR) is calculated using the 2020 CKD-EPI creatinine equation. This equation utilizes serum creatinine, sex, and age as parameters. The creatinine assay has traceable calibration to isotope dilution- mass spectrometry. Refer to KDIGO guidelines for clinical interpretation. In patients with unstable renal function, e.g. those with acute kidney injury, the eGFR may not accurately reflect actual GFR. Blood BLOOD SPECIMEN / Unknown Venipuncture / Unknown 09/01/2024 9:28 AM EST 09/01/2024 9:28 AM EST Shahrzad Person MD LABORATORY Final R esult [facility] [address] [place] [address] from Last 3 Months or Most Recently Relevant to Health Maintenance Insurance [facility] MEDICARE ADVANTAGE HMO Care Teams Banana Handler Relationship Specialty Start Date End Date Nette Serrano MD [address] [place] [phone] PCP - General Family Medicine 07/27/21 Jose Cervantes MD [address] [id number] Referring Thoracic Surgery 07/20/21 Houston Carolina MD [address] [place] [address] Physician Hematology/Oncology 08/27/21 Ramona Nunez, PA-C [address] [place] [address] Physician Snow Technician Hematology/Oncology 08/27/21 Shahrzad Person MD [address] [place], [place] [id number] Referring Gynecology 07/27/23
--- OUTSIDE RECORDS SUMMARY | 2025-03-16 10:13 | XMS_ITS | Encounter Summary ---
Author Organization [employer] Address [facility]-[id number] [address] [place] [address] Care Team Providers Care Beverage Inspection Machine Tender Name Role Phone Nette Serrano MD Primary Care Provider [phone] Encounter Details Date Type Department Care Team (Late st Contact Info) Description 06/19/2021 Orders Only [employer] External Film Storage [facility] [place] [address] Transcribe, Orders Support User Pain (Primary Dx) Social History Tobacco Use Types Packs/Day Years [...] have Coronavirus / COVID-19? No / Unsure 06/19/2021 3:48 PM EDT documented as of this encounter Functional Status documented as of this encounter Plan of Treatment Not on file documented as of this encounter Results * CT angiogram chest (06/19/2021 11:30 AM EDT) us Scanning Provider External IMG CT ORDERABLES Fin al Result documented in this encounter Visit Diagnoses Diagnosis Pain- Primary Generalized pain documented in this encounter Care Teams Beverage Inspection Machine Tender Relationship Specialty Start Date End Date Nette Serrano MD [address] [place] [address] PCP - General Family Medicine 06/19/21 documented as of this encounter
--- OUTSIDE RECORDS SUMMARY | 2025-03-16 10:13 | XMS_ITS | Encounter Summary ---
Author Organization [facility] Address [address] [place] [address] Care Team Providers Care Patching Machine Operator Name Role Phone Jose Cervantes MD Unavailable + [phone] Nette Serrano MD Primary Care Provider [phone] Houston Carolina MD Unavailable [phone] Ramona Nunez PA-C Unavailable [phone] Shahrzad Person MD Unavailable [phone] Source Comments In the event this information is protected by the Federal Confidentiality of Alcohol and Drug AbusePatient Records regulations: The Federal rules restrict any use of the information to criminally investigate or prosecute any alcohol or drug abuse patient.[facility] Encounter Details Date Type Department Care Team (Late st Contact Info) Description 10/11/2024 Patient Msg Gynecology Oncology [address] [place], [place] [id number] Caty Adams APRN.BRASS PLATER [address] [place] [address] follow up Social History Tobacco Use Types Packs/Day Years [...] is lower risk 4 03/26/2023 Data from: https://www.neighborhoodatlas.medicine.[facility]/. Last address used for calculation [address] 03/26/2023 Comments No Sex and Gender Information Value Date Recorded Sex Assigned at Not on file Legal Sex Female 2:52 PM EDT Gender Identity Not on file Sexual Orientation Not on file documented as of this encounter Plan of Treatment Upcoming Encounters Date Type Department Care Team (Latest Contact Info) Description 03/16/2025 1:45 PM EDT Appointment Radiology Pet CT [address] [facility] [place] [address] CT CAP W IV CONTRAST 03/16/2025 3:30 PM EDT Visit (SP) Office Gynecology Oncology [address] [place] [address] [place] [address] Caty Adams APRN.BRASS PLATER [address] [place], [place] [phone] Follo up per encounter documented as of this encounter Visit Diagnoses Not on filedocumented in this encounter Care Teams Patching Machine Operator Relationship Specialty Start Date End Date Nette Serrano MD [address] [facility] [place] [address] PCP - General Family Medicine 07/27/21 Jose Cervantes MD [address] [place] [address] Referring Thoracic Surgery 07/20/21 Houston Carolina MD [address] [place] [address] [place] [address] Physician Hematology/Oncology 08/27/21 Ramona Nunez PAMeñoC [address] [place] [address] [place] [address] Physician Critical Care Educator Hematology/Oncology 08/27/21 Shahrzad Person MD [address] [place] [address] Referring Gynecology 07/27/23 documented as of this encounter
--- OUTSIDE RECORDS SUMMARY | 2025-03-16 10:13 | XMS_ITS | Encounter Summary ---
Author Organization [facility] [facility] tem Address [id number] [address] [place] [address] Care Team Providers Care Outside Installer Apprentice Name Role Phone Nette Serrano MD Primary Care Provider [phone] Encounter Details Date Type Department Care Team (Late st Contact Info) Description 07/06/2021 Documentation [facility] - GEN 6 Acute [address] [place] [phone] Yolanda Urias RN Social History Tobacco Use Types Packs/Day Years [...] have Coronavirus / COVID-19? No / Unsure 07/06/2021 6:26 AM EDT documented as of this encounter Plan of Treatment Not on file documented as of this encounter Goals Goal Patient Goal Type Associated Problems Recent Progress Patient-Stated? Author home General Yes Maria Isabel Valadez, RN Note: Evaluation of progress towards goal: Patient plans to discharge home with self care and with assistance from family. documented as of this encounter Visit Diagnoses Not on filedocumented in this encounter Care Teams Outside Installer Apprentice Relationship Specialty Start Date End Date Nette Serrano MD [address] [place] [address] PCP - General Family Medicine 06/19/21 documented as of this encounter
--- OUTSIDE RECORDS SUMMARY | 2025-03-16 10:13 | XMS_ITS | Clinical Summary ---
Author Organization [employer] tem Address [facility][id number] [address] [place] [address] Care Team Providers Care Cat Scan Technologist Name Role Phone Nette Serrano MD Primary Care Provider [phone] Allergies Active Allergy Reactions Criticality Noted Date Comments Oxycodone-Acetaminophen 05/21/2019 PASSED OUT Medications atorvastatin (LIPITOR) 10 mg tablet Take 10 mg by mouth. Active fenofibrate micronized (LOFIBRA) 134 mg capsule Take 134 mg by mouth. Active rOPINIRole (REQUIP) 0.5 mg tablet Take 0.5 mg by mouth. Active venlafaxine XR (EFFEXOR-XR) 75 mg 24 hr capsule 05/12/2019 Ac tive metoprolol succinate XL (TOPROL-XL) 25 mg 24 hr tablet Take 12.5 mg by mouth daily. Active Active Problems Problem Noted Date Diagnosed Date Iron deficiency anemia 06/23/2021 Pleural effusion 06/23/2021 History of ovarian cancer 06/23/2021 Musculoskeletal pain 06/22/2021 Leukocytosis 06/22/2021 Atelectasis 06/22/2021 Current smoker 06/22/2021 Anxiety and depression 06/22/2021 Restless leg syndrome 06/22/2021 Essential hypertension 06/22/2021 Dyslipidemia 06/22/2021 Empyema of left pleural space 06/20/2021 Hemoptysis 06/19/2021 Resolved Problems Problem Noted Date Diagnosed Date Resolved Date Anemia of unknown etiology 06/22/2021 0 06/23/2021 Family History Medical History Relation Name Comments Bladder dysfunction Brother 1 BLADDER CANCER Cancer Brother 1 Prostate cancer Brother 2 Heart disease Father Lung cancer Mother Pancreatic cancer Paternal Grandmother Uterine cancer Sister Relation Name Status Comments Brother 1 Alive Brother 2 Alive Father Mother Paternal Grandmother Sister Alive Social History Tobacco Use Types Packs/Day Years Used Date Smoking Tobacco: Some Days Cigarettes Smokeless Tobacco: Never Tobacco Cessation:Counseling Given: Yes Alcohol Use Standard Drinks/Week Comments Not Currently [...] Sign Reading Time Taken Comments Blood Pressure 116/62 07/19/2021 9:41 AM EDT Pulse 72 07/19/2021 9:41 AM EDT Temperature 36.6 C (97.8 F) 07/19/2021 9:41 AM EDT Respiratory Rate 18 07/19/2021 9:41 AM EDT Oxygen Saturation 95% 07/19/2021 9:41 AM EDT Inhaled Oxygen Concentration - - Weight 78.5 kg (173 lb) 07/19/2021 9:41 AM EDT Height 170.2 cm (5' 7.01 ) 06/21/2021 7:25 AM ED T Body Mass Index 27.09 06/21/2021 7:25 AM EDT Plan of Treatment Health Maintenance Due Date Last Done Comments Depression Screening 1979 Tobacco Screening 1979 Adult BMI Screening 1985 Zoster (Shingles) Vaccine (1 of 2) 2017 Colonoscopy 05/26/2024 05/26/2019 Influenza Vaccine 06/06/2025 DTaP,Tdap and Td Vaccines (2 - Tdap) 05/06/2031 0810/2020 Goals Goal Patient Goal Type Associated Problems Recent Progress Patient-Stated? Author home General Yes Maria Isabel Valadez, RN Note: Evaluation of progress towards goal: Patient plans to discharge home with self care and with assistance from family. Medical Devices Implanted Type Area Hydrogenation Still Operator Device Identifier Shelf Expiration Date Model / Serial / Lot Kit Tiss Clsr Progel Plr Slnt Adh Air Lek 4ml Strl Lf 4/Ca - [id number] Implanted:Qty: 1 on 07/06/2021 by Jose Cervantes MD at [facility] Other Implant Left: Lung Neomed 03/05/2022 [id number] / / [id number] Description:PRODUCT IS A PLE URAL AIR LEAK SEALANT Insurance [employer] MEDICARE Advance Directives * Full Code (Latest Code Status on File) Date Activated Date Inactivated Comments 06/19/2021 11:07 PM 07/09/2021 6:58 PM Care Teams Cat Scan Technologist Relationship Specialty Start Date End Date Nette Serrano MD [address] [place] [address] PCP - General Family Medicine 06/19/21
--- OUTSIDE RECORDS SUMMARY | 2025-03-16 10:13 | XMS_ITS | Encounter Summary ---
Author Organization [employer] Address [facility]-[id number] [address] [place] [address] Care Team Providers Care Drill Hand Name Role Phone Nette Serrano MD Primary Care Provider [phone] Encounter Details Date Type Department Care Team (Late st Contact Info) Description 07/18[facility]2021 [facility] [address] [address] Gale Fair RN Social History Tobacco Use Types Packs/Day [...] encounter Miscellaneous Notes * Telephone Encounter - Gale Fair RN - 07/18/2021 10:36 AM EDT ----- Message from Darcie Bai RN sent at 07/18/2021 8:42 AM EDT ----- Lung Tumor Board-fiindings suggest metastatic materials branch chief malignancy to lung. Advise Social Media Strategist Oncology or Medical Oncology followup. Pulmonary followup advised. * Telephone Encounter - Gale Fair RN - 07/18/2021 10:36 AM EDT appt 07/26 RJW documented in this encounter Plan of Treatment [...] on filedocumented in this encounter Care Teams Drill Hand Relationship Specialty Start Date End Date Nette Serrano MD [address] [place] [address] PCP - General Family Medicine 06/19/21 documented as of this encounter
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
--- OUTSIDE RECORDS SUMMARY | 2025-03-16 10:13 | XMS_ITS ---
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 Past Treatment and Therapy Plans BIOMASS FACILITATOR/ONC Plan Name Start Date Discontinue Date Treatment Medications Discontinue Reason Plan Provider Cycles PACLITAXEL 175 D1 CARBOPLATIN 6 D1 - Q21D 1 05/09/2022 CARBOplatin iv piggyback (PARAPLATIN)PA CLitaxel iv piggyback (TAXOL)palonos etron (ALOXI) Treatment Complete Houston Carolina MD 6 of 8 cycles started NON-CHEMO 1 Plan Name Start Date Discontinue Date Treatment Medications Discontinue Reason Plan Provider Cycles AMB HYDRATION - ONCE 2 05/10/2022 No medications scheduled. Other Temo Castaneda MD Treatment not started
[2025-03-16 11:09] LABS: Basophils Percent Auto 0.6 % (0.2-2.0); Eosinophils Absolute Auto 0.4 10^3/uL (0.0-0.7); Eosinophils Percent Auto 5.5 % (0.9-7.0); Hematocrit 41.5 % (36.0-48.0); Hemoglobin 13.1 g/dL (12.0-16.0); Immature Granulocytes Abs Auto 0.03 10^3/uL (0.00-0.03); Immature Granulocytes Pct Auto 0.5 % (0.0-0.5); Lymphocytes Absolute Auto 1.4 10^3/uL (1.2-3.8); Lymphocytes Percent Auto 22.2 % (20.5-60.0); Mean Corpuscular HGB Conc 31.6 g/dL (29.9-35.2); Mean Corpuscular Hemoglobin 28.9 pg (26.7-34.0); Mean Corpuscular Volume 91.4 fL (81.0-99.0); Mean Platelet Volume 10.2 fL (9.5-13.5); Monocytes Absolute Auto 0.5 10^3/uL (0.3-0.8); Monocytes Percent Auto 7.7 % (1.7-12.0); Neutrophils Absolute Auto 4.1 10^3/uL (1.4-6.5); Neutrophils Percent Auto 63.5 % (43.0-75.0); Platelet Count 283 10^3/uL (150-450); Red Blood Count 4.54 10^6/uL (4.20-5.40); Red Cell Distribution Width 14.4 % (11.0-15.0); White Blood Count 6.5 10^3/uL (4.0-11.0)
[2025-03-16 11:15] LABS: Alanine Aminotransferase 21 U/L (14-59); Albumin Globulin Ratio 0.9; Albumin Level 3.4 g/dL (3.4-5.0); Alkaline Phosphatase 48 U/L (46-116); Anion Gap 15.4; Aspartate Amino Transferase 17 U/L (15-37); BUN Creatinine Ratio 18.6; Bilirubin Total 0.4 mg/dL (0.2-1.0); Calcium 9.1 mg/dL (8.5-10.1); Carbon Dioxide 24.8 mmol/L (21.0-32.0); Chloride 109 mmol/L (98-107); Chol HDL Ratio 2.1; Cholesterol 127 mg/dL (<=200); Estimated GFR (African America >60 (>=60 mL/min/1.73m^2); Estimated GFR (Non-African Ame 56 (>=60 mL/min/1.73m^2); Globulin 3.7 g/dL; Glucose 116 mg/dL (74-106); HDL Cholesterol 61 mg/dL (40-60); Potassium 4.2 mmol/L (3.5-5.1); Sodium 145 mmol/L (136-145); Thyroid Stimulating Hormone 2.917 uIU/mL (0.358-3.740); Total Protein 7.1 g/dL (6.4-8.2); Triglycerides 103 mg/dL (<=150); VLDL CHOLESTEROL 20.6 mg/dL
[2025-03-16 11:21] LABS: Creatinine Urine Random 190.06 mg/dL (20.00-300.00); Microalbumin Urine Random <1.3 mg/dL (<=30.0)
[2025-03-16 11:59] LABS: Free T4 0.92 ng/dL (0.76-1.46)
[2025-03-16 12:30] LABS: Estimated Average Glucose 120 mg/dL; Glycohemoglobin A1C 5.8 % (4.5-6.2)
== END 2025-03-16 10:09 | disposition home or self-care (01) ==
LOC: LAB 10:11
PROVIDERS: PCP Family Medicine; Visit Provider Family Medicine
DX: Z00.00 Encounter for general adult medical examination without abnormal findings (principal); E78.1 Pure hyperglyceridemia; I10 Essential (primary) hypertension; R53.83 Other fatigue
CPT/HCPCS: 36415; 80053; 80061; 82043; 82570; 83036; 84439; 84443; 85025